=== PATIENT | female | born 2000 | race Two or more races ===

== ENCOUNTER 2022-08-12 02:24 | Inpatient (IN) | payer OTHER ==
[~2022-08-12] VITALS: Ht 160 cm; Wt 62.6 kg
[2022-08-12] MEDS ORDERED: FOLIC ACID20 MG PO (02:26)
[2022-08-12] MEDS ORDERED: PRENATAL 19 TA1 EAC2 PO (02:26)
== END 2022-08-15 12:41 | disposition home or self-care (01) | DRG 788 ==
LOC: LDR 02:24 → O/R 02:24 → OB/GYN 02:24 → O/R 16:26 → OB/GYN 18:20
PROVIDERS: ADMIT Obstetrics & Gynecology; ATTEND Obstetrics & Gynecology
PROC: 4A1HXCZ Monitoring of Products of Conception, Cardiac Rate, External Approach (ICD-10-PCS; 2022-08-12)
PROC: 10D00Z1 Extraction of Products of Conception, Low, Open Approach (ICD-10-PCS; principal; 2022-08-12 18:30)
DX: O64.0XX0 Obstructed labor due to incomplete rotation of fetal head, not applicable or unspecified (principal); O82 Encounter for cesarean delivery without indication; O62.1 Secondary uterine inertia; Z3A.39 39 weeks gestation of pregnancy; Z37.0 Single live birth; Z20.822 Contact with and (suspected) exposure to COVID-19